=== PATIENT | female | born 1975 | race Asian ===

== ENCOUNTER → 2016-08-22 | Outpatient (CLI) | payer OTHER ==
[~2016-08-22] VITALS: Ht 154.9 cm; Wt 54.0 kg
[~2016-08-22] MED LIST: PANTOPRAZOLE SO40 MG PO
== END | disposition home or self-care (01) ==
LOC: AMB 10:53
PROC: 0DJ08ZZ Inspection of Upper Intestinal Tract, Via Natural or Artificial Opening Endoscopic (ICD-10-PCS; principal; 2016-08-22)
DX: R10.13 Epigastric pain (principal); J44.9 Chronic obstructive pulmonary disease, unspecified; K21.9 Gastro-esophageal reflux disease without esophagitis; Z88.0 Allergy status to penicillin; Z88.2 Allergy status to sulfonamides

== ENCOUNTER 2016-11-28 06:53 | Day surgery (SDC) | payer OTHER ==
[~2016-11-28] VITALS: Ht 154.9 cm; Wt 54.0 kg
[~2016-11-28 06:53] MED LIST changes: +HAIR, SKIN AND1 EAC1 PO
[2016-11-28 07:29] VITALS: BP 108/54
[2016-11-28 11:11] VITALS: BP 118/70
[2016-11-28 12:17] VITALS: BP 110/80
== END 2016-11-28 12:18 | disposition home or self-care (01) ==
LOC: SDC 06:53
DX: H35.341 Macular cyst, hole, or pseudohole, right eye (principal); K21.9 Gastro-esophageal reflux disease without esophagitis; E04.1 Nontoxic single thyroid nodule; J44.9 Chronic obstructive pulmonary disease, unspecified; Z88.2 Allergy status to sulfonamides; Z88.0 Allergy status to penicillin
CPT/HCPCS: J0690; J1100; J2405; J3300